=== PATIENT | male | born 1980 | race Caucasian/White ===

== ENCOUNTER 2021-08-02 20:40 | Emergency (ER) | payer OTHER ==
[2021-08-02 20:54] VITALS: BP 132/76; PULSE 89; TEMP 98.1; BMI 33.5
== END 2021-08-02 23:04 | disposition home or self-care (01) ==
LOC: FER 20:40
DX: M25.512 Pain in left shoulder (principal)
CPT/HCPCS: 93005; 93971; 99284-25

== ENCOUNTER 2022-02-14 15:13 | Observation (INO) | payer OTHER ==
[2022-02-14 17:35] LABS: HEMATOCRIT 44.7 % (35.4-49); HEMOGLOBIN 15.4 G/dL (11.7-16.9); MCH 26.9 pg (25.7-33.7); MCHC 34.4 g/dl (32.0-35.9); MEAN CELL VOLUME 78.2 fl (80-96); MEAN PLT VOLUME 7.2 fl (7.5-11.1); PLATELET COUNT 476.7 10^3/uL (134-434); RBC 5.72 10^6/uL (4.00-5.60); RDW 15.6 % (11.9-15.9); WHITE BLOOD COUNT 11.2 10^3/uL (4.0-10.8)
[2022-02-14 17:42] LABS: ALBUMIN 4.1 g/dl (3.4-5.0); BILIRUBIN,TOTAL 0.4 mg/dl (0.2-1); CALCIUM 9.5 mg/dl (8.5-10); CREATININE 1.2 mg/dl (0.55-1.3); TOT PROT 7.7 g/dl (6.4-8.2)
[2022-02-14] MEDS ORDERED: ASPIRIN 81 MG CHEWABLE TABLETS PO ONE (18:00)
[2022-02-14] MEDS ORDERED: ASPIRIN 81 MG CHEWABLE TABLETS ONE (18:03)
[2022-02-14] MEDS ORDERED: LORazepam 2 MG TABLET PO ONE (20:31)
[2022-02-14] MEDS ORDERED: LORazepam 0.5 MG TABLET ONE (20:36)
[2022-02-14 21:34] LABS: CHOLESTEROL 216 mg/dl (50-200); HDL CHOLESTEROL 50 mg/dl (40-60); LDL CHOLESTEROL (ONLY DFH) 140 mg/dl (5-100); TRIGLYCERIDES 128 mg/dl (0-150)
[2022-02-14] MEDS ORDERED: QUEtiapine FUMARATE 200 MG TABLET PO SCH ×3 (23:44→23:54)
[2022-02-15 00:35] VITALS: BMI 35.2
[2022-02-15] MEDS ORDERED: busPIRone HCL 5 MG TABLET PO PRN (06:25)
[2022-02-15 09:43] LABS: ALBUMIN 3.6 g/dl (3.4-5.0); BILIRUBIN,TOTAL 0.4 mg/dl (0.2-1); CREATININE 1.1 mg/dl (0.55-1.3); MAGNESIUM 2.1 mg/dL (1.8-2.4); TOT PROT 6.6 g/dl (6.4-8.2)
[2022-02-15] MEDS ORDERED: HEPARIN NA (PORCINE) 5,000 UNITS/ML 1ML VIAL SQ SCH (10:00)
[2022-02-15] MEDS ORDERED: ASPIRIN 81 MG CHEWABLE TABLETS PO SCH (10:00)
[2022-02-15 14:20] VITALS: BP 106/59; PULSE 80; TEMP 98
== END 2022-02-15 16:45 | disposition short-term general hospital (02) ==
LOC: FER 15:13 → INTOOBSV 23:30 → FM/S 23:30
PROVIDERS: ADMIT Internal Medicine; ATTEND Nurse Practitioner Family
PROC: 3E023GC Introduction of Other Therapeutic Substance into Muscle, Percutaneous Approach (ICD-10-PCS; principal; 2022-02-14)
DX: I24.9 Acute ischemic heart disease, unspecified (principal); R07.89 Other chest pain; Z20.822 Contact with and (suspected) exposure to COVID-19; E66.9 Obesity, unspecified; Z68.35 Body mass index [BMI] 35.0-35.9, adult; G47.00 Insomnia, unspecified; Z29.8 Encounter for other specified prophylactic measures
CPT/HCPCS: 36415; 71045-TC-FY; 80053; 80061; 83735; 84443; 84484; 85025; 93005; 93010; 99285-25; C9803-CS; G0378; J1644; U0003; U0005